=== PATIENT | male | born 1995 | race Caucasian/White ===

== ENCOUNTER 2017-07-13 15:02 | Emergency (ER) | payer OTHER ==
[2017-07-13] MEDS ORDERED: ONDANSETRON 4 MG/2 ML VIAL IVP ONE (15:25)
[2017-07-13] MEDS ORDERED: NS 1,000 ML IV ONE ×2 (15:25)
[2017-07-13 15:49] LABS: PLATELET COUNT 191 10^3/uL (150-400)
--- NOTE | 2017-07-13 15:49 | EDPHY ---
H & P Stated Complaint: Increased blood sugar,n/v after eating at [employer] yesterday Time Seen by Provider: 07/13/17 15:22 HPI/ROS: CHIEF COMPLAINT: Nausea and vomiting in a diabetic patient HISTORY OF PRESENT ILLNESS: The patient presents to the ED with a 1 day history of nausea and vomiting. The patient believes he may have eaten some bad food a fast food restaurant. The patient denies diarrhea or abdominal pain. The patient reports his blood sugar has been fairly well controlled over the past week. The patient denies recent hospitalization. The patient denies additional past medical history. The patient does not smoke or use alcohol. The patient reports he has had multiple episodes of nonbloody bilious vomiting. REVIEW OF SYSTEMS: A comprehensive 10 point review of systems is otherwise negative aside from elements mentioned in the history of present illness. Source: Patient Exam Limitations: No limitations - Personal History Current Tetanus Diphtheria and Acellular Pertussis (TDAP): Unsure - Medical/Surgical History Hx Diabetes: Yes - Social History Smoking Status: Never smoked - Physical Exam Exam: General Appearance: Alert, no distress Eyes: Pupils equal and round no pallor or injection ENT, Mouth: Mucous membranes moist Respiratory: There are no retractions, lungs are clear to auscultation Cardiovascular: Regular rate and rhythm Gastrointestinal: Abdomen is soft and nontender, no masses, bowel sounds normal Neurological: A&O, normal motor function, normal sensory exam, normal cranial nerves Skin: Warm and dry, no rashes Musculoskeletal: Neck is supple nontender Extremities: symmetrical, full range of motion Constitutional: Initial Vital Signs Temperature (C) 36.6 C 07/13/17 15:10 Heart Rate 68 07/13/17 15:10 Respiratory Rate 18 07/13/17 15:10 Blood Pressure 137/71 H 07/13/17 15:10 O2 Sat (%) 97 07/13/17 15:10 O2 Delivery Mode Room Air Allergies/Adverse Reactions: No Known Allergies Allergy (Unverified 07/13/17 15:14) Home Medications: Medication Instructions Recorded Insulin Aspart [novoLOG] unit SC AC 07/13/17 Insulin Glargine [Lantus 100 0 units SC DAILY 07/13/17 UNITS/ML (*)] Ondansetron Odt [Zofran Odt] 4 mg PO Q4PRN PRN #20 tab 07/13/17 Medical Decision Making ED Course/Re-evaluation: The patient had an IV established. He received 2 L of normal saline. He received 4 mg of IV Zofran. The patient's laboratories are checked. He does have hyperglycemia without evidence of diabetic ketoacidosis. The patient's abdominal examination is benign. The patient was observed in the emergency department after IV fluid rehydration. I re-evaluated the patient at 6:00 p.m.. He is feeling much better and will be discharged home with Zofran. He remains with a benign abdominal examination. The patient will be given customary aftercare instructions and return precautions. Differential Diagnosis: Differential diagnosis considered includes diabetic ketoacidosis, hyperglycemia , dehydration, renal failure, metabolic abnormality - Data Points Laboratory Results: Laboratory Results 07/13/17 15:42 07/13/17 15:42 07/13/17 07/13/17 15:42 15:42 WBC 18.63 10^3/uL H 10^3/uL (3.80-9.50) RBC 5.01 10^6/uL 10^6/uL (4.40-6.38) Hgb 15.3 g/dL g/dL (13.7-17.5) Hct 42.6 % % (40.0-51.0) MCV 85.0 fL fL (81.5-99.8) MCH 30.5 pg pg (27.9-34.1) MCHC 35.9 g/dL g/dL (32.4-36.7) RDW 11.9 % % (11.5-15.2) Plt Count 191 10^3/uL 10^3/uL (150-400) MPV 11.0 fL fL (8.7-11.7) Neut % (Auto) 93.6 % H % (39.3-74.2) Lymph % (Auto) 3.8 % L % (15.0-45.0) [place] % (Auto) 1.7 % L % (4.5-13.0) Eos % (Auto) 0.0 % L % (0.6-7.6) Baso % (Auto) 0.1 % L % (0.3-1.7) Nucleat RBC Rel Count 0.0 % % (0.0-0.2) Absolute Neuts (auto) 17.43 10^3/uL H 10^3/uL (1.70-6.50) Absolute Lymphs (auto) 0.71 10^3/uL L 10^3/uL (1.00-3.00) Absolute Monos (auto) 0.32 10^3/uL 10^3/uL (0.30-0.80) Absolute Eos (auto) 0.00 10^3/uL L 10^3/uL (0.03-0.40) Absolute Basos (auto) 0.02 10^3/uL 10^3/uL (0.02-0.10) Absolute Nucleated RBC 0.00 10^3/uL 10^3/uL (0-0.01) Immature Gran % 0.8 % % (0.0-1.1) Immature Gran # 0.15 10^3/uL H 10^3/uL (0.00-0.10) Sodium 139 mEq/L mEq/L (135-145) Potassium 4.8 mEq/L mEq/L (3.5-5.2) Chloride 102 mEq/L mEq/L (97-110) Carbon Dioxide 21 mEq/l L mEq/l (22-31) Anion Gap 16 mEq/L mEq/L (8-16) BUN 16 mg/dL mg/dL (7-23) Creatinine 0.9 mg/dL mg/dL (0.7-1.3) Estimated GFR > 60 Glucose 308 mg/dL H mg/dL (70-100) Calcium 9.4 mg/dL mg/dL (8.5-10.4) Medications Given: Discontinued Medications Sodium Chloride (Ns) 1,000 mls @ 0 mls/hr IV EDNOW ONE; Wide Open PRN Reason: Protocol Stop: 07/13/17 15:26 Last Admin: 07/13/17 15:35 Dose: 1,000 mls Sodium Chloride (Ns) 1,000 mls @ 0 mls/hr IV EDNOW ONE; Wide Open PRN Reason: Protocol Stop: 07/13/17 15:26 Last Admin: 07/13/17 15:57 Dose: 1,000 mls Ondansetron HCl (Zofran) 4 mg IVP EDNOW ONE Stop: 07/13/17 15:26 Last Admin: 07/13/17 15:57 Dose: 4 mg Departure - Departure Disposition: Home, Routine, Self-Care Clinical Impression: Gastroenteritis Condition: Good Instructions: Gastroenteritis (ED) Additional Instructions: 1. Zofran as needed for nausea. 2. Return to the ED for intractable nausea, vomiting, worsening dehydration, uncontrolled blood sugars or other concerns Referrals: RONY KENNY [Other] - As per Instructions Prescriptions: Ondansetron Odt [Zofran Odt] 4 mg PO Q4PRN PRN #20 tab PRN Reason: For Nausea
[2017-07-13 18:15] VITALS: BP 133/67; PULSE 84; RESP 16; TEMP 98.2; O2SAT 97
== END 2017-07-13 18:14 | disposition home or self-care (01) ==
DX: K52.9 Noninfective gastroenteritis and colitis, unspecified (principal); E11.9 Type 2 diabetes mellitus without complications; E86.9 Volume depletion, unspecified; Z79.4 Long term (current) use of insulin
CPT/HCPCS: 96374; J2405